=== PATIENT | female | born 1990 | race Hispanic/Latino ===

== ENCOUNTER 2017-07-16 17:56 | Emergency (ER) | payer MEDICAID, OTHER ==
[2017-07-16 18:39] LABS: BILIRUBIN,URINE Negative (NEGATIVE); COLOR,URINE Yellow (YELLOW); GLUCOSE, URINE (UA) Negative (NEGATIVE); KETONES,URINE Negative (NEGATIVE); LEUKOCYTE ESTERASE ,URINE Negative (NEGATIVE); NITRATE,URINE Negative (NEGATIVE); OCCULT BLOOD,URINE Negative (NEGATIVE); PROTEIN,URINE Negative (NEGATIVE)
[2017-07-16 18:40] LABS: APPEARANCE,URINE Clear (CLEAR)
[2017-07-16 18:41] LABS: HCG,QUAL RESULT NEGATIVE (NEGATIVE)
[2017-07-16] MEDS ORDERED: HYOSCYAMINE SULFATE 0.125 MG TAB.SUBL SL ONE (20:05)
[2017-07-16] MEDS ORDERED: KETOROLAC TROMETHAMINE 30MG/ML ONE (20:05)
== END 2017-07-16 20:52 | disposition home or self-care (01) ==
LOC: EDH 17:56
DX: N73.9 Female pelvic inflammatory disease, unspecified (principal); R10.9 Unspecified abdominal pain; Z98.890 Other specified postprocedural states
CPT/HCPCS: 76856; 81003; 81025; 96372; 99285; J1885